=== PATIENT | female | born 2000 | race Caucasian/White ===

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

== ENCOUNTER 2018-05-19 21:37 | Emergency (ER) | END 2018-05-20 00:40 | disposition home or self-care (01) ==

== ENCOUNTER 2018-06-22 10:03 | Emergency (ER) | END 2018-06-22 13:17 | disposition home or self-care (01) ==